=== PATIENT | female | born 1980 | race Caucasian/White ===

== ENCOUNTER 2022-08-08 16:57 | Emergency (ER) | payer OTHER, MEDICARE ==
[2022-08-08] MEDS ORDERED: HYDROmorphone 1 MG/ML Syringe IM ONE (17:35)
[2022-08-08] MEDS ORDERED: Acetaminophen/HYDROcodone 325-5 MG Tab PO ONE (18:44)
== END 2022-08-08 19:14 | disposition home or self-care (01) ==
LOC: JP.ED 16:57
DX: S92.415A Nondisplaced fracture of proximal phalanx of left great toe, initial encounter for closed fracture (principal); Z72.0 Tobacco use; Z88.8 Allergy status to other drugs, medicaments and biological substances; V89.2XXA Person injured in unspecified motor-vehicle accident, traffic, initial encounter; Y92.410 Unspecified street and highway as the place of occurrence of the external cause
CPT/HCPCS: 73090; 73630; 96372; 99284; J1170